=== PATIENT | female | born 1940 | race Caucasian/White ===

== ENCOUNTER 2016-09-23 04:01 | Inpatient (IN) | payer OTHER ==
[~2016-09-23] VITALS: Ht 152.4 cm; Wt 70.3 kg
[~2016-09-23 04:01] MED LIST: ASPIRIN EC81 M1 PO; CARDIZEM CD180 M1 PO; CO Q-10100 MG PO; COUMADIN5 M2 PO; CRESTOR5 M1 PO; CYCLOBENZAPRINE10 M1 PO; DILAUDID2 M1 PO; MAGNESIUM400 M1 PO; MELATONIN3 M4 PO; METFORMIN HCL500 M3 PO; OMEGA-31000 M1 PO; OMEPRAZOLE40 M1 PO; PERCOCET 5-3251 EACH PO; PREDNISONE10 M2 PO; TRAMADOL HCL50 M1 PO; TUMERIC PO; VITAMIN D5000 UNIT PO; XARELTO20 M2 PO
--- NOTE | 2016-09-23 11:37 | Operative Report ---
Operative/Inv Procedure Report Surgery Date: 09/23/16 Name of Procedure: Left total knee arthroplasty Pre-Operative Diagnosis: Primary left knee osteoarthritis Post-Operative Diagnosis: Same with the final pathology pending Estimated Blood Loss: less than 50ml Surgeon/Instrument Technician Helper: RICKY HYDE,Carlos ALBERT Anesthesia: general endotracheal tube Implants: Hubbard triathlon total knee system-size 4 femur, size 3 tibia, 9 mm polyethylene insert, 29 patella Drains: None Specimens: Femoral, tibial, patellar bone Microbiology: Urine Tourniquet: 54 minutes Complications: None Condition: Stable Operative Indication: Patient is a 75-year-old woman with a long history of gradually worsening knee symptoms. She underwent a right total knee arthroplasty recently. He was planning to perform the left total knee arthroplasty but was delayed because she suffered an unrelated femur fracture. She recovered from both of those procedures very well. She had gradually worsening symptoms involving her left knee which interfere with normal activities of daily living. She wished to proceed with total knee arthroplasty. She previously underwent conservative measures which provided short-term relief only. Risks, benefits and expectations of surgical management as well as nonsurgical management were discussed including but not limited to persistent knee pain, need for subsequent surgery, infection, anesthesia risks, injury to nerve or blood vessel, DVT. Patient wished to proceed with total knee arthroplasty Operative/Procedure Note Note: Patient was brought to the operating room and transferred to the operating table. Once under appropriate anesthesia the left lower extremity was prepped and draped in standard fashion. Preoperative IV antibiotics were given prophylactically. A standard anterior incision was made after the leg was elevated, exsanguinated and tourniquet was inflated to 300 mm of pressure. The incision was taken down sharply to the underlying retinaculum. A medial retinacular approach was used with a minimal extension into the quadriceps tendon. There were severe degenerative changes in all 3 compartments. Osteophytes were excised. Knee was flexed. Retractors were placed medially and laterally. Remnants of the ACL and anterior horns of the medial lateral meniscal tissues were excised. Drill was used to enter the intramedullary canal of the distal femur for the intramedullary guide for the distal femoral cut. A 5 valgus cut was chosen due to patient's valgus alignment. The appropriate thickness was removed. Femur was incised was size 4. Size 4 cutting block was pinned in place in all 4 cuts were made while protecting the soft tissues. I then used the external tibial alignment guide and pin the cutting block in position for a neutral cut from medial to lateral and reproducing patient's posterior slope based on preoperative templating and intraoperative measurements. The cut was made while protecting the posterior cruciate ligament and medial lateral structures. The tibia was incised was size 3. Size 3 tibia size 4 femur and a 9 mm insert was applied and the knee was taken out to full extension. Knee was slightly tight in flexion and extension and therefore additional 2 mm thickness cut was removed from the tibia. Sizing was completed again. I was satisfied with the stability and the symmetry of the ligament balance. Patella was then measured and the appropriate thickness was removed. The 3 lug holes were drilled for the size 27 patella. The thickness was restored with a size 27 patella. Patella tracking was checked. No need for lateral release. Copious irrigation was done after instruments removed from the knee. I finished preparation with the tibial punch with the appropriate rotation based on my trialing. All instruments rotation was removed and copious irrigation of the knee followed. Cement was being mixed on the back table. Cement was applied to the dry clean bony surfaces of the tibia. The size 3 tibia was impacted in place and excess cement was removed with curettes. Cement was applied to the dry clean bony surfaces of the distal femur and the size 4 femur was impacted in place while excess cement was removed with curettes. Cement was applied to the dry clean bony surfaces of the patella and excess cement was removed with a knife after the size 27 patella was impacted in place. The knee was taken out to full extension. Periarticular and pericapsular injection of ropivacaine with epinephrine and Toradol was injected to try to minimize postoperative he inflammation and for pain management. Once the cement hardened I took the knee through range of motion. Small pieces of excess cement were removed with osteotome. I was satisfied with the 9 mm cruciate retaining polyethylene. I removed the trial. This was followed by copious irrigation of the tibial tray. I make sure there was no evidence of soft tissue, bone fragments or cement fragments within the tibial tray and then I impacted the definitive size 9 mm cruciate retaining polyethylene insert into position. The locking mechanism was confirmed. Knee was taken out to full extension. There was no evidence of instability in extension mid flexion hands patient had full flexion to gravity. Copious irrigation of the knee followed. Tourniquet was deflated at 54 minutes. Hemostasis was obtained. There was no need for a drain. Every level of closure was followed by copious irrigation. The retinaculum and medial extension into the quadriceps was repaired with interrupted #1 Vicryl sutures. Subcutaneous tissues closed in 2 layers with 2-0 Vicryl and skin was closed with a running 3-0 Vicryl suture with the knee in flexion. Appropriate dressings were applied and patient was awakened and taken the recovery room in good condition. No intraoperative complications. Blood loss was less than 50 mL Discharge Disposition: PACU
--- NOTE | 2016-09-23 16:57 | PN- Student ---
DALLAS COCHRAN 09/23/16 1641: Subjective Subjective: Patient denies any acute events or complaints in the immediate post-op period. She denies any chest pain, shortness of breath, nausea, vomiting, pain, numbness or tingling, or flatus. Objective Objective: Physical Exam: General: Well appearing, in no acute distress. Alert and oriented to person place time and event. Skin: [place] warm and dry. Left upper extremity has petechiae on hand up to about elbow. Non-tender. Head: Normocephalic, atraumatic. Eyes: EOMI, PERRL. Mouth: Dry mucous membranes. Cardiac: Regular rate and rhythm. Normal S1/S2, no murmurs rubs or gallops. Pulmonary: Clear to ausculation bilaterally, no rhonchi, wheeze or rales. Abdomen: Normoactive bowel sounds. Soft, non-tender, non-distended. Small [id number] palpable mass slight right and superior to umbilicous. Patients reports its her lap band from previous bariatric surgery. Lower abdomen firm with palpable scar tissue secondary to tummy tuck. Extremities: 2+ bilateral and dorsalis pedis pulses. No calf tenderness, swelling or edema. Left knee covered with josi bandage. On Q site covered and free of drainage. Results Results: Microbiology 09/23 1205 URINE ROUT: Urine Culture - RECD Assessment/Plan Assessment: Patient is a 75 year old female with a history of femur fracture, a-fib, and osteoarthritis of left knee who is POD#0 s/p total left knee arthroplasty without complications. Plan: -Continue pain management as directed by Dr. Hicks. -Regular diet as tolerated. -Monitor I/O's. -Discontinue mina 09/24/16 am. -Physical therapy as directed. -ALP's, weight bearing as permitted, and coumadin for DVT prophylaxis. -Encourage incentive spirometry and wean O2 as tolerated. -Follow up with am labs as nedded. Will discuss the above with PA surgical team. [place] RUIZ-S2 DONNAKIANNA RIOS 09/23/16 0593: Assessment/Plan Plan: xarelto ordered for dvt ppx, not coumadin
[2016-09-23 17:10] VITALS: BP 140/60
[2016-09-23 19:30] VITALS: BP 116/71
--- NOTE | 2016-09-23 20:49 | NUR ---
1710 PATIENT ARRIVED TO FLOOR. ALERT AND ORIENTED X 3. VITAL SIGNS STABLE. DENIES CHEST PAIN. + PULSES DSG TO L KNEE IS C/D/I. ICE APPLIED. NO DISTRESS NOTED BED LOW AND LOCKED. CALL LIGHT WITHIN REACH. RASH NOTED TO L FOREARM 1800 PATIENT ON 1L OXYGEN VIA NASAL CANNULA
[2016-09-23 22:37] VITALS: BP 132/62
[2016-09-24 01:54] VITALS: BP 138/60
[2016-09-24 06:30] VITALS: BP 122/60
--- NOTE | 2016-09-24 08:09 | PN- Student ---
See Addendum WILLAM COCHRAN 09/24/16 0757: Subjective Subjective: Patient reports intense 10/10 left foot pain over night. She states it hurt most in the heal around to the top of her foot and on the medial malleolus area. She reports similar circumstances when she had her right knee replaced. She states the nurse gave her 2 vicodin and the pain was relieved. She denies any current ankle pain. She further denies any knee pain, chest pain, nausea, vomiting, diarrhea, fevers, or dysuria. She did state although she did not feel short of breath, she noticed she was taking a large breath every few minutes. She reports good appetite and postive flatus. She is looking forward to going home. Objective Objective: Vitals: BP:122/60 Pulse:100 Resp: 20 Temp: 98.2F SpO2: 97% 3lpm NC Physical Exam: General: Well-appearing, in no acute distress. Alert and oriented to person place time and event. Skin: [place] warm and dry. Left arm continues to have diffuse petechiae from DIPs to elbow. No worse than exam yesterday. Head: Normocephalic, atraumatic. Eyes: PERRL, EOMI. Mouth: Moist mucous membranes. Cardiac: Regular rate and rhythm, Normal S1/S2. No murmurs, rubs or gallops. Pulmonary: Clear to ausculation bilaterally. No wheezes, rubs or rales. Abdomen: Soft, non-tender, non-distended. Normoactive bowel sounds. Extremities: 2+ bilateral radial and dorsalis pedis pulses. No calf tenderness, swelling or edema bilaterally. Left ankle/acid tender to palpation on heel, anterior metatarsals, and medial malleolus. No obvious ecchymosis or deformity. Results Results: Laboratory Tests 09/24/16 0705: Sodium Pending, Potassium Pending, Chloride Pending, Carbon Dioxide Pending, Anion Gap Pending, BUN Pending, Creatinine Pending, BUN/Creatinine Ratio Pending , CBC w Diff Pending, WBC Pending, RBC Pending, Hgb Pending, Hct Pending, MCV Pending, MCH Pending, RDW Pending, Plt Count Pending, MPV Pending, PUBS MCHC Pending Microbiology 09/23 1205 URINE ROUT: Urine Culture - RECD Assessment/Plan Assessment: Patient is a 75 year old female with a history of hip fracture, right knee replacement, afib, and osteoarthritis of left knee who is POD#1 s/p left total knee arthroplasty without hospital complications. Plan: -Continue pain managment as directed. -Continue regular diet. -Physical therapy to visit today. -Discontinue mina when permitted out of bed. -Continue ALPs and coumadin for DVT ppx. -Encourage incentive spirometry. -Wean from O2. -Initiate POCT blood glucose checks BID secondary to restarting metformin. -Monitor I/O's. -Continue home meds as needed. -Follow up on pending am labs. -Continue to monitor petechiae of left arm. -Consider x-ray of left ankle. -Dressing change POD#2, 09/25/16. Will discuss above with PA surgical team. Willam RUIZ-S2 AMADO SÁNCHEZ 09/24/16 0810: Objective Objective: left hand and forearm slightly pink and swollen Assessment/Plan Plan: agree with above PA-S note will order ultrasound of left arm to r/o dvt f/u labs coumadin accordingly PT to see her this morning her goal is to go home dressing change tomorrow will d/w
[2016-09-24 08:13] LABS: ABSOLUTE BASOPHIL COUNT 0 /CUMM (0.0-0.2); ABSOLUTE EOSINOPHIL COUNT 0 /CUMM (0.0-0.7); ABSOLUTE GRANULOCYTE CT 13.2 /CUMM (1.4-6.5); ABSOLUTE LYMPH COUNT 0.6 /CUMM (1.2-3.4); ABSOLUTE MONOCYTE COUNT 0.6 /CUMM (0.10-0.60); BASOPHIL % 0 % (0.0-2.0); EOSINOPHIL % 0 % (0-5); HEMATOCRIT 32.7 % (37-47); MEAN CORPUSCULAR HGB 27.8 PG (27.0-31.0); MEAN CORPUSCULAR HGB CONC 33.1 G/DL (33.0-37.0); MEAN CORPUSCULAR VOLUME 83.8 FL (81.0-99.0); PLATELET COUNT 178 /CUMM (130-400); RBC DISTRIBUTION WIDTH 14.8 % (11.5-14.5)
[2016-09-24 09:30] LABS: WHITE BLOOD CELL COUNT 14.4 /CUMM (4.8-10.8)
--- NOTE | 2016-09-24 09:53 | NUR ---
0600 L HAND REMAINS RED/BLOTCHY/SLIGHT EDEMA-LESS RED AT FOREARM. SURGICAL PA AWARE. SURGICAL ALSO AWARE OF PAIN AT L HEEL/OUTER ANKLE AREA.
--- NOTE | 2016-09-24 11:50 | ULTRASOUND REPORT ---
EXAMINATION: ULTRASOUND LEFT UPPER EXTREMITY: CLINICAL INFORMATION: Left arm erythema and swelling. TECHNIQUE: Doppler spectral analysis and color flow Doppler imaging was obtained. Compression and augmentation techniques were utilized. COMPARISON: None. FINDINGS: Respiratory variation, normal compression and augmented flow are noted throughout the left upper extremity. The visualized internal jugular vein, subclavian vein, axillary vein, cephalic vein, basilic vein, brachial veins, and radial and ulnar veins show no evidence of deep venous thrombosis. There are no focal fluid collections. IMPRESSION: 1. No evidence of deep vein thrombosis is demonstrated in the left upper extremity. VTE: Negative.
[2016-09-24 14:44] VITALS: BP 114/58
[2016-09-24 22:26] VITALS: BP 144/69
--- NOTE | 2016-09-25 08:03 | PN- Orthopedic ---
Subjective Subjective: Reports pain has increased over the last 24 hours, but improves with both vicodin and iv morphine. She admits to some itching after morphine, but isn't interested in benadryl. Tolerating diet. No nausea/vomiting. +small bm. Out of bed with PT and rolling walker assistance yesterday without dizziness. No shortness of breath. No chest pains. Voiding well. Ultrasound of her left arm negative for dvt yesterday. Eager to be discharged to home today so that she can attend her nephew's tomorrow. Objective Vital Signs and I&Os Vital Signs Date Time Temp Pulse Resp B/P Pulse O2 O2 Flow FiO2 Ox Delivery Rate 09/24 2225 98.0 93 20 144/69 99 09/24 1444 98.4 103 20 114/58 98 Room Air Intake & Output 09/25 1600 09/25 0800 09/25 0000 09/24 1600 09/24 0800 09/24 0000 Intake Total 120 480 800 720 200 Output Total 250 350 550 900 350 Balance -130 130 250 -180 -150 Intake, IV 100 600 Intake, Oral 120 480 700 120 200 Number 0 Bowel Movements Output, Urine 250 350 550 900 350 Patient 155 lb Weight Physical Exam: General - alert & oriented x 3. comfortable. no acute distress. Lungs - clear bilaterally. no w/r/r. Cardiac - irreg irreg. Abdomen - soft. nontender. lap band port palpable. Extremities - warm bilaterally. no c/c/e. left leg dressing changed. incision well approximated with steri strips. calves soft and nontender b/l. nvi. on q pump removed without difficulty (bulb empty). Current Medications: Current Medications Sig/Marisela Start time Last Medication Dose Route Stop Time Status Admin Acetaminophen/ 1 TAB Q6P PRN 09/23 171 AC Hydrocodone Bitart PO Acetaminophen/ 2 TAB Q6P PRN 09/23 1715 AC 09/24 Hydrocodone Bitart PO 2211 Al Hydroxide/Mg 30 ML Q6P PRN 09/23 171 AC Hydroxide PO Atorvastatin Calcium 20 MG 1700 09/23 1700 AC PO Diltiazem HCl 120 MG DAILY 09/24 1000 AC 09/24 PO 1216 Docusate Sodium 100 MG BID 09/24 1000 AC 09/24 PO 2211 Docusate Sodium 100 MG DAILY NEEDED PRN 09/23 171 DC PO Magnesium Oxide 400 MG TID 09/23 1600 AC 09/24 PO 2211 Metformin HCl 500 MG BID 09/23 2200 AC 09/24 PO 221 Morphine Sulfate 2 MG Q3P PRN 09/23 1714 AC 09/24 IV 1936 Morphine Sulfate 4 MG Q3P PRN 09/23 171 AC 09/25 IV 0651 Omeprazole 40 MG DAILY AC 09/24 0700 AC 09/25 PO 0651 Ondansetron HCl 4 MG Q6P PRN 09/23 1714 AC IV Polyethylene Glycol 17 GM DAILY NEEDED PRN 09/23 1714 AC PO Rivaroxaban 20 MG DAILY 09/24 1000 AC 09/24 PO 1216 Senna/Docusate Sodium 2 TAB AT BEDTIME NEED.. 09/23 1714 AC PO Results Last 48 Hours of Labs: Laboratory Tests 09/25 09/24 0620 0705 Chemistry Sodium (137 - 145 mmol/L) 137 Potassium (3.5 - 5.1 mmol/L) 4.1 Chloride (98 - 107 mmol/L) 106 Carbon Dioxide (22 - 30 mmol/L) 25 Anion Gap (5 - 16) 6 BUN (7 - 17 mg/dL) 8 Creatinine (0.5 - 1.0 mg/dL) 0.4 L Estimated GFR (>60 ml/min) > 60 BUN/Creatinine Ratio (7 - 25 %) 20.0 Hematology CBC w Diff Pending NO MAN DIFF REQ WBC (4.8 - 10.8 /CUMM) Pending 14.4 H RBC (4.20 - 5.40 /CUMM) Pending 3.90 L Hgb (12.0 - 16.0 G/DL) Pending 10.8 L Hct (37 - 47 %) Pending 32.7 L MCV (81.0 - 99.0 FL) Pending 83.8 MCH (27.0 - 31.0 PG) Pending 27.8 RDW (11.5 - 14.5 %) Pending 14.8 H Plt Count (130 - 400 /CUMM) Pending 178 MPV (7.4 - 10.4 FL) Pending 9.0 Gran % (42.2 - 75.2 %) 92.0 H Lymphocytes % (20.5 - 51.1 %) 3.9 L Monocytes % (1.7 - 9.3 %) 4.1 Eosinophils % (0 - 5 %) 0 Basophils % (0.0 - 2.0 %) 0 L Absolute Granulocytes (1.4 - 6.5 /CUMM) 13.2 H Absolute Lymphocytes (1.2 - 3.4 /CUMM) 0.6 L Absolute Monocytes (0.10 - 0.60 /CUMM) 0.6 Absolute Eosinophils (0.0 - 0.7 /CUMM) 0 Absolute Basophils (0.0 - 0.2 /CUMM) 0 PUBS MCHC (33.0 - 37.0 G/DL) Pending 33.1 Assessment/Plan Assessment/Plan This 75 year old white female with hx afib (on xarelto) is now POD#2 s/p left total knee replacement tolerating diet try vicodin ES. stop morphine bowel regime ordered xarelto for afib / dvt ppx continue PT dressing changed on q removed f/u cbc likely d/c home today will d/w Core Measures/Miscellaneous Venous Thromboembolism VTE Risk Factors: Age > 40, Surgery VTE Contraindications: No Contraindications VTE Diagnosis: No Beta Bobby Is Beta Bobby a Home Med? No Antibiotics Is Patient on Antibiotics? Yes If Yes: prophylaxis
[2016-09-25 08:06] LABS: ABSOLUTE BASOPHIL COUNT 0 /CUMM (0.0-0.2); ABSOLUTE EOSINOPHIL COUNT 0 /CUMM (0.0-0.7); ABSOLUTE GRANULOCYTE CT 7.6 /CUMM (1.4-6.5); ABSOLUTE LYMPH COUNT 1.7 /CUMM (1.2-3.4); ABSOLUTE MONOCYTE COUNT 0.9 /CUMM (0.10-0.60); BASOPHIL % 0.4 % (0.0-2.0); EOSINOPHIL % 0.2 % (0-5); GRANULOCYTE % 74.3 % (42.2-75.2); HEMATOCRIT 28.6 % (37-47); MEAN CORPUSCULAR HGB 27.5 PG (27.0-31.0); MEAN CORPUSCULAR HGB CONC 32.7 G/DL (33.0-37.0); MEAN CORPUSCULAR VOLUME 84.3 FL (81.0-99.0); MEAN PLATELET VOLUME 9.1 FL (7.4-10.4); PLATELET COUNT 146 /CUMM (130-400); RBC DISTRIBUTION WIDTH 15.2 % (11.5-14.5); WHITE BLOOD CELL COUNT 10.3 /CUMM (4.8-10.8)
--- NOTE | 2016-09-25 08:09 | Patient Discharge Instructions ---
Discharge Instructions General Discharge Information You were seen/treated for: Primary left knee osteoarthritis You had these procedures: Surgery Date: 09/23/16 Name of Procedure: Left total knee arthroplasty Watch for these problems: fever>101.3, increased pain, redness/swelling/drainage No bath, but you may shower: Yes Other wound care: dry guaze dressing changes as desired, but not needed. leave white steri strips in place, as they will fall off with time. keep incision clean & dry. Diet Continue normal diet: No Recommended Diet: Diabetic, Heart Healthy Activity Full Activity/No Limits: No Activity Self Limited: Yes Activity Limited to: Weight bear as tolerated Other activity limits: rolling walker assistance Acute Coronary Syndrome Inclusion Criteria At DC or during hospital stay patient has or had the following: ACS DIAGNOSIS No Discharge Core Measures Meds if any: Prescribed or Continued at Discharge Meds if any: NOT Prescribed or Continued at Discharge Congestive Heart Failure Inclusion Criteria At DC or during hospital stay patient has or had the following: CHF DIAGNOSIS No Discharge Core Measures Meds if any: Prescribed or Continued at Discharge Meds if any: NOT Prescribed or Continued at Discharge Cerebrovascular accident Inclusion Criteria At DC or during hospital stay patient has or had the following: CVA/TIA Diagnosis No Discharge Core Measures Meds if any: Prescribed or Continued at Discharge Meds if any: NOT Prescribed or Continued at Discharge Venous thromboembolism Inclusion Criteria VTE Diagnosis No VTE Type NONE VTE Confirmed by (Test) NONE Discharge Core Measures - Per Current guidelines, there needs to be overlap - treatment for the first 5 days of Warfarin therapy. - If discharged on Warfarin prior to 5 days of - overlap therapy, the patient will need to be - assessed for post discharge needs including - *Post discharge parental anticoagulation - *Warfarin and/or parental anticoagulation education - *Follow up date to check INR post discharge At least 5 days overlap therapy as Inpatient No Meds if any: Prescribed or Continued at Discharge Note: Overlap Therapy is Warfarin and Anticoagulant Meds if any: NOT Prescribed or Continued at Discharge
[2016-09-25] MEDS ORDERED: DOCUSATE SODIU100 M3 PO (08:10)
[2016-09-25] MEDS ORDERED: SENNA PLUS TAB1 EACH PO (08:11)
[2016-09-25] MEDS ORDERED: NORCO 7.5-3251 EACH PO (08:15)
[2016-09-25] MEDS ORDERED: XARELTO10 M1 PO (08:16)
--- NOTE | 2016-09-25 08:32 | Surgical Discharge Summary ---
Visit Information Visit Dates Admission Date: 09/23/16 Discharge Date: 09/25/16 History of Present Illness Chief Complaint: Primary left knee osteoarthritis Medical History Blood Transfusion Hx: Yes Neurological: NONE EENT: NONE Cardiovascular: AFIB Respiratory: obstructive sleep apnea Gastrointestinal: GERD Hepatic: NONE Renal: NONE Musculoskeletal: KNEE REPLACEMENT RIGHT(January 2016) Psychiatric: NONE Endocrine: diabetes ((on metformin)) Blood Disorders: NONE Cancer(s): Non-Hodgkin lymphoma LYMPHOMA [employer]PER[employer]OR METAL FABRICATING/Reproductive: HYSTERECTOMY oophorectomy-right cholecystectomy History of MRSA: No History of VRE: No History of CDIFF: No Isolation History: Standard Pneumonia Vaccine: 04/16/13 Influenza Vaccine: 04/06/16 Surgical History Pertinent Surgical History: cholecystectomy, knee replacement Family History Relations & Conditions If Any: MOTHER (breast cancer). Psychosocial History Where Do You Live? Home Who Do You Live With? Spouse Services at Home: Physical Therapy What is Your Primary Language? Kenyan Review of Systems: see h&p Hospital Course Course Attending Physician: RICKY HYDE,BETY Primary Care Physician: JOSE MIGUEL VALENTIN MD Hospital Course: Electively scheduled left total knee replacement by on 09/23/16 for primary osteoarthritis, which was uneventful. She restarted her usual dose of xarelto post-operatively for blood clot risk reduction, since she usually takes this medication at home for atrial fibrillation. Her pain medication was transitioned from iv morphine to oral vicodin. She has been doing really well ambulating with rolling walker assistance, and has been motivated to go home on post-op day#2 to be able to attend her nephew's on post-op day#3 if possible. An ultrasound of her left arm was done on post-op day#1 due to some redness and swelling, which was negative for dvt. She will be discharged to home today, post-op day#2 pending PT clearance and adequate pain control with vicodin. Her dressing was changed today and on-q pump was removed. Complications: None Allergies: Coded Allergies: adhesive tape (TEARS SKIN 01/19/16) acetaminophen (From PERCOCET) (AGITATION 09/13/16) oxycodone (From PERCOCET) (AGITATION 09/13/16) Disposition Summary Disposition Principal Diagnosis: Primary left knee osteoarthritis Additional Diagnosis: s/p Left total knee arthroplasty Discharge Disposition: home health services Discharge Instructions General Discharge Information Code Status: Full Code Patient's Diet: diabetic diet, as tolerated Patient's Activity: weight bearing as tolerated ambulate with rolling walker assistance Follow-Up Instructions/Appts: pre-printed instructions given to patient continue xarelto for blood clot risk reduction afib (home med) prescription for vicodin filled at time of her discharge continue PT, wbat, rolling walker assistance call to schedule follow up appointment with within 3-4 weeks after discharge Medications at Discharge Discharge Medications: Continue taking these medications: Rosuvastatin Calcium (Crestor) 5 MG TABLET 1 Tablet ORAL Every night Comments: NOT GIVEN IN THE HOSPITAL Metformin HCl (Metformin HCl) 500 MG TABLET 1 Tablet ORAL TWICE DAILY Comments: NOT GIVEN IN THE HOSPITAL Omeprazole (Omeprazole) 40 MG CAPSULE.DR 1 Capsule ORAL Every Morning Comments: NOT GIVERN IN THE HOSPITAL Tabor-3 Fatty Acids (Tabor-3) (Unknown Strength) CAPSULE 1 Capsule ORAL DAILY Comments: NOT GIVEN IN THE HOSPITAL Ubidecarenone (Co Q-10) (Unknown Strength) CAPSULE Unknown Dose ORAL DAILY Instructions: Please take one tablet a day. Please confirm the dose from your PCP. Comments: NOT GIVEN IN THE HOSPITAL Cholecalciferol (Vitamin D3) (Vitamin D) 5,000 UNIT TABLET 1 Tablet ORAL DAILY Comments: Last Taken: 06/03/16 Time: 10:30AM Diltiazem HCl (Cardizem Cd) 180 MG CAP.ER.24H 1 Tablet ORAL DAILY Days = 30 Comments: Last Taken:06/03/16 Time:10:30AM Magnesium Oxide (Magnesium) 400 MG CAPSULE 1 Capsule ORAL TWICE DAILY Qty = 60 Comments: Last Taken:06/03/16 Time:10:30AM Rivaroxaban (Xarelto) 20 MG TABLET 1 Tablet ORAL DAILY Qty = 30 Instructions: with food Comments: Last Taken:06/03/16 Time:12PM Start taking the following new medications: Docusate Sodium (Docusate Sodium) 100 MG CAPSULE 100 Milligram ORAL TWICE DAILY as needed for CONSTIPATION Days = 14 No Refills Instructions: stool softener available over the counter Sennosides/Docusate Sodium (Senna Plus Tablet) 8.6 MG-50 MG TABLET 2 Tablet ORAL AT BEDTIME NEEDED as needed for CONSTIPATION Days = 14 No Refills Instructions: available over the counter Rivaroxaban (Xarelto) 10 MG TABLET 20 Milligram ORAL DAILY Qty = 30 No Refills Instructions: as prescribed by logistics specialist Hydrocodone/Acetaminophen ([place] 7.5-325 Tablet) 7.5 MG-325 MG TABLET 1-2 Tablet ORAL EVERY 4-6 HOURS NEEDED as needed for pain control Qty = 36 No Refills Instructions: take as directed, as needed for pain control. do not combine with tylenol. Copies To: BARBIE HYDE,JOSE MIGUEL Vasquez; ODELL HYDE,Eliza ROBERTS
--- NOTE | 2016-09-25 11:56 | RADIOLOGY REPORT ---
EXAMINATION: XR KNEE, LEFT CLINICAL INFORMATION: Status post left total knee arthroplasty. COMPARISON: None. TECHNIQUE: AP and lateral of the left knee. FINDINGS: There are sequelae of a left total knee arthroplasty. The hardware appears intact and in anatomic physician. There are no acute fractures. There are expected postoperative changes in the soft tissues. IMPRESSION: 1. The study demonstrates sequelae of a left total knee arthroplasty.
== END 2016-09-25 10:25 | disposition home health service (06) | DRG 470 ==
LOC: ENRESERVDT → ENRESERVTM → ENPENDDIS 04:01 → 2NB 04:01 → SDA 04:01 → 2NB 16:20
PROVIDERS: Physician Assistant Surgical; ADMIT Orthopaedic Surgery
PROC: 0SRD0J9 Replacement of Left Knee Joint with Synthetic Substitute, Cemented, Open Approach (ICD-10-PCS; principal; 2016-09-23)
DX: M17.12 Unilateral primary osteoarthritis, left knee (principal); I48.91 Unspecified atrial fibrillation; E11.9 Type 2 diabetes mellitus without complications; E66.9 Obesity, unspecified; Z68.30 Body mass index [BMI] 30.0-30.9, adult; E78.5 Hyperlipidemia, unspecified; K21.9 Gastro-esophageal reflux disease without esophagitis; Z85.72 Personal history of non-Hodgkin lymphomas; Z79.84 Long term (current) use of oral hypoglycemic drugs; Z79.01 Long term (current) use of anticoagulants
CPT/HCPCS: 2NBP; 36415; 73560-LT; 82436; 87086; 88305; 97110-GO; 97116-GO; 97161-GP; 97530-GO; C1713; J0131; J0171; J1885; J2405; J2795; J3370; J3490; J7060